=== PATIENT | male | born 1970 | race Caucasian/White ===

== ENCOUNTER → 2024-07-06 12:01 | Outpatient (CLI) | payer OTHER, MEDICAID, SELFPAY ==
[2024-07-06 12:50] LABS: Add Manual Diff / Slide Review NO; Basophils Absolute Auto 200 /uL (0-100); Basophils Percent Auto 1.4 % (0-2); Eosinophils Absolute Auto 100 /uL (0-450); Eosinophils Percent Auto 0.9 % (2-4); Hematocrit 44.7 % (41-53); Hemoglobin 14.9 g/dL (13.5-17.5); Lymphocytes Absolute Auto 2200 /uL (1100-4500); Lymphocytes Percent Auto 20.7 % (25-40); Mean Corpuscular HGB Conc 33.4 % (30-36); Mean Corpuscular Hemoglobin 28.5 PG (26-34); Mean Corpuscular Volume 85.5 fL (80-100); Monocytes Absolute Auto 600 /uL (0-900); Monocytes Percent Auto 5.8 % (3-14); Neutrophils Absolute Auto 7600 /uL (1500-7000); Neutrophils Percent Auto 71.2 % (50-75); Platelet Count 366 X10^3/uL (150-400); Red Blood Cell Count 5.23 X10^6/uL (4.5-5.9); White Blood Cell Count 10.7 X10^3/uL (4.5-11.0)
[2024-07-06 13:59] LABS: Alanine Aminotransferase 41 IU/L (<50); Albumin 4.4 g/dL (3.5-5.0); Albumin Globulin Ratio 1.4 (1.0-2.8); Alkaline Phosphatase 81 U/L (38-126); Aspartate Aminotransferase 32 IU/L (17-59); BUN Creatinine Ratio 18.9 (6-22); Bilirubin Total 0.7 mg/dL (0.2-1.3); Blood Urea Nitrogen 17 mg/dL (9-20); Calcium 9.3 mg/dL (8.4-10.2); Carbon Dioxide 27 mmol/L (22-32); Chloride 104 mmol/L (98-107); Cholesterol 201 mg/dL (140-199); Estimated Glomerular Filt Rate > 60 mL/min (>60); Globulin 3.2 g/dL (1.7-4.1); Glucose 93 mg/dL (70-100); HDL Cholesterol 31 mg/dL (40-60); HEMOLYSIS < 15 (0-50); LDL Cholesterol Calculated 145 mg/dL (<100); Potassium 4.2 mmol/L (3.4-5.1); Sodium 139 mmol/L (137-145); Total Protein 7.6 g/dL (6.3-8.2); Triglycerides 124 mg/dL (35-150)
[2024-07-06 14:32] LABS: Prostate Specific Antigen 1.32 ng/mL (0.10-4.00)
== END ==
PROVIDERS: PCP Family Medicine; Referring Provider Family Medicine; Visit Provider Family Medicine
DX: Z00.00 Encounter for general adult medical examination without abnormal findings (principal); E78.00 Pure hypercholesterolemia, unspecified; Z80.42 Family history of malignant neoplasm of prostate
CPT/HCPCS: 36415; 80053; 80061; 84153; 85025

== ENCOUNTER 2025-02-07 07:28 | Day surgery (SDC) | payer OTHER, SELFPAY ==
--- NOTE | 2025-02-07 | PATH_ITS ---
[facility] Accession Number: [id number] No. of containers..02 Tissue . 01 Material submitted: . PART A: body - POLYP @ 50CM PART B: body - POLYP @ 25CM . 01 Diagnosis: A. COLON AT 50 CM, POLYPECTOMY: Tubular adenoma. - B. COLON AT 25 CM, POLYPECTOMY: Colonic mucosa with no significant diagnostic abnormality, consistent with polypoid redundancy. Negative for dysplasia, or malignancy. [facility] 02/09/2025 1113 Local . 01 Electronically signed: . Franny Jansen MD, Pathologist NPI- [id number] . 01 Gross description: . Part A: POLYP @ 50CM: Received in formalin is 1 fragment(s) of cedillo, soft tissue measuring 0.5 x 0.3 x 0.3 cm submitted entirely in 1 cassette(s) Part B: POLYP @ 25CM: Received in formalin is 1 fragment(s) of cedillo, soft tissue measuring 0.3 x 0.3 x 0.2 cm submitted entirely in 1 cassette(s) /[facility] 02/08/2025 0138 Local . 01 Pathologist provided ICD-10: Z12.11 . 01 CPT . 611854, [id number] Specimen Comment: A courtesy copy of this report has been sent to [phone] Performed at: [address] [facility] [address], [place], [place] [id number] MD Preet Chawla MD Phone: [phone]
[2025-02-07] MEDS: LACTATED RINGERS 1,000 ML 100 ML IV (07:42)
[2025-02-07 07:46] VITALS: BP 106/70; PULSE 87; RESP 16; TEMP 36.1; O2SAT 100
--- NOTE | 2025-02-07 08:30 | P.HP_ITS ---
History of Present Illness History of Present Illness Date Patient Seen: 02/07/25 Chief complaint: SDC Narrative: For screening colonoscopy [facility] Medical History Adult wellness visit Chicken pox Deviated nasal septum History of cleft palate Hyperlipidemia Encounter for vasectomy counseling Surgical History Anesthesia History of hernia repair Family History Father Cancer History of heart disease Hypertension Grandfather History of heart disease Hypertension Grandmother History of heart disease Hypertension Social History Smoking Status: Former smoker alcohol intake: former Meds Home Medications and Allergies Home Medications Medication Instructions Recorded Confirmed Type diazepam 10 mg tablet (Valium) 10 mg PO ONCE #1 tab 07/08/24 08/19/24 Rx oxycodone-acetaminophen 10 mg-325 1 tab PO ONCE pain #1 tab 07/08/24 08/19/24 Rx mg tablet (Percocet) peg 3350-electrolytes 236 240 ml PO Q10M #4,000 mL 12/24/24 Rx gram-22.74 gram-6.74 gram-5.86 gram solution (Golytely) Allergies Allergy/AdvReac Type Severity Reaction Status Date / Time No Known Drug Allergies Allergy Verified 02/07/25 07:38 Exam Vital Signs (past 8 hours): - 02/07/25 07:46 Temperature 97 F L Pulse Rate 87 Respiratory Rate 16 Blood Pressure 106/70 Pulse Oximetry 100 Oxygen Delivery Method Room Air Oxygen Delivery Method Room Air Narrative Exam Narrative: Oropharynx free of lesions Chest clear to auscultation percussion Cardiac exam reveals no S3 or murmur Assessment & Plan Assessment & Plan narrative: For screening colonoscopy, risks, benefits, alternatives Time-Based Coding :: [TOTAL MINUTES] spent with patient and on the chart (including review of chart, obtaining history, exam, reviewing outside data, placing orders, documenting exam and treatment plan, and counseling patient) on [DATE]. [employer] Document charge(s): No
--- NOTE | 2025-02-07 08:31 | PM.OP.COLON ---
Procedure & Clinicians Study performed: Colonoscopy Same procedure as scheduled: Yes Indications: For screening colonoscopy Surgeon: Suzanne Cintron Procedure Notes Procedure in detail: After informed consent was obtained the patient was placed in left lateral decubitus position. The video colonoscope was introduced the rectum slowly advanced cecum. Preparation was good. On slow withdrawal mucosa was carefully examined. The scope was removed. The patient tolerated procedure well. Blood loss none Complications none Sedation mac Findings 1. For mm polyp at 60 cm Jumbo biopsied and removed completely 2. 6 mm polyp at 25 cm Jumbo biopsy removed completely 3. Extensive sigmoid and left-sided diverticulosis 4. Moderate internal hemorrhoids Will be in touch with the patient regarding biopsies and expect he will need follow-up colonoscopy in 5 years
[2025-02-07 09:24] VITALS: BP 83/50; PULSE 68; RESP 19; TEMP 36.2; O2SAT 98
[2025-02-07 09:29] VITALS: BP 86/50; PULSE 63; RESP 18; O2SAT 98
[2025-02-07 09:36] VITALS: BP 87/63; PULSE 78; RESP 14; TEMP 36.2; O2SAT 96
[2025-02-07 09:52] VITALS: BP 109/73
== END 2025-02-07 09:55 | disposition home or self-care (01) ==
PROVIDERS: PCP Family Medicine; Referring Provider Internal Medicine Gastroenterology; Visit Provider Internal Medicine Gastroenterology
PROC: 0DJD8ZZ Inspection of Lower Intestinal Tract, Via Natural or Artificial Opening Endoscopic (ICD-10-PCS; CPT 45378; principal; 2025-02-07 09:00)
DX: Z12.11 Encounter for screening for malignant neoplasm of colon (principal); K57.30 Diverticulosis of large intestine without perforation or abscess without bleeding; K64.8 Other hemorrhoids; D12.6 Benign neoplasm of colon, unspecified; K63.5 Polyp of colon
CPT/HCPCS: 45380; J2704